=== PATIENT | male | born 1995 | race Caucasian/White ===

== ENCOUNTER 2021-07-14 10:15 | Day surgery (SDC) | payer OTHER ==
[~2021-07-14] VITALS: Ht 167.6 cm; Wt 68.0 kg
[~2021-07-14 10:15] MED LIST: DICY1CAP8 PO; FLOM0.4C39 PO; GABA800T4 PO; NS 1,000 ML IV ONE; PANT40TA29 PO; SING10TA32 PO
[2021-07-14] MEDS ORDERED: LIDOCAINE 2% 100MG/5ML SDV (FOR ANES.) As Ordered ONE (12:52)
[2021-07-14] MEDS ORDERED: propofoL 200 MG/20 ML VIAL As Ordered ONE ×3 (12:52→13:18)
[2021-07-14 13:45] VITALS: BP 121/78
== END 2021-07-14 13:53 | disposition home or self-care (01) ==
LOC: M OPP 10:15
PROVIDERS: ATTEND Surgery
DX: R63.4 Abnormal weight loss (principal); K64.0 First degree hemorrhoids; K22.89 Other specified disease of esophagus; K29.70 Gastritis, unspecified, without bleeding; K44.9 Diaphragmatic hernia without obstruction or gangrene; R10.13 Epigastric pain; Z79.899 Other long term (current) drug therapy

== ENCOUNTER 2021-10-02 10:03 | Emergency (ER) | payer OTHER ==
[~2021-10-02] VITALS: Ht 167.6 cm; Wt 61.4 kg
[~2021-10-02 10:03] MED LIST changes: -NS 1,000 ML IV ONE
[2021-10-02] MEDS ORDERED: MULT-90 PO (10:18)
[2021-10-02 11:35] LABS: BASO % 0.1 % (0.0-1.0); EOS % 0.1 % (0.0-3.0); HEMATOCRIT 42.1 % (42.0-52.0); HEMOGLOBIN 15.1 g/dl (13.5-17.5); LYMPH # 0.9 10^3/uL (1.5-5.0); LYMPH % 9.5 % (24.0-44.0); MEAN CORPUSCULAR HEMOGLOBIN 32.3 pg (27.0-33.0); MEAN CORPUSCULAR HGB CONC 35.9 g/dl (32.0-36.5); MONO # 0.6 10^3/uL (0.0-0.8); MONO % 5.9 % (2.0-8.0); NEUTROPHILS # 8.2 10^3/uL (1.5-8.5); NEUTROPHILS % 84.1 % (36.0-66.0); PLATELET COUNT, AUTOMATED 203 10^3/uL (150-450); RED BLOOD COUNT 4.68 10^6/uL (4.30-6.10); WHITE BLOOD COUNT 9.8 10^3/uL (4.0-10.0)
[2021-10-02] MEDS ORDERED: NS 1,000 ML IV ONE (11:35)
[2021-10-02] MEDS ORDERED: ONDANSETRON 4MG/2ML VIAL IV ONE (11:35)
[2021-10-02 12:11] LABS: ALBUMIN 4.8 GM/DL (3.2-5.2); ALT/SGPT 49 U/L (12-78); BILIRUBIN,DIRECT 0.4 MG/DL (0.0-0.2); BILIRUBIN,TOTAL 1.6 MG/DL (0.2-1.0); BLOOD UREA NITROGEN 20 MG/DL (7-18); CARBON DIOXIDE LEVEL 28 MEQ/L (21-32); CHLORIDE LEVEL 107 MEQ/L (98-107); CREATININE FOR GFR 0.89 MG/DL (0.70-1.30); GLOMERULAR FILTRATION RATE > 60.0 (>60); GLUCOSE, FASTING 67 MG/DL (70-100); LIPASE 159 U/L (73-393); POTASSIUM SERUM 4.9 MEQ/L (3.5-5.1); SODIUM LEVEL 142 MEQ/L (136-145); TOTAL PROTEIN 7.8 GM/DL (6.4-8.2)
[2021-10-02] MEDS ORDERED: ONDA4TAB6 PO (13:51)
[2021-10-02 14:03] VITALS: BP 119/60
== END 2021-10-02 14:04 | disposition home or self-care (01) ==
LOC: M ED 10:03
DX: R10.10 Upper abdominal pain, unspecified (principal); R11.2 Nausea with vomiting, unspecified; K21.9 Gastro-esophageal reflux disease without esophagitis; F17.220 Nicotine dependence, chewing tobacco, uncomplicated; Z79.899 Other long term (current) drug therapy
CPT/HCPCS: 76705; 80048; 80076; 83690; 85025; 96361; 96374; 99284; J2405

== ENCOUNTER → 2021-11-30 | Outpatient (CLI) | payer OTHER ==
[~2021-11-30] MED LIST changes: +E-Z-GAS II EFFERVESCENT PACKET (SODIUM BICARB./CITRIC ACID/SIMETHICONE) As Ordered ONE; +E-Z-HD 98% w/w 340GM SUSP BTL As Ordered ONE; +E-Z-PAQUE 96% w/w SUSP 176GM BTL As Ordered ONE; +MULT-90 PO; +ONDA4TAB6 PO
== END ==
LOC: M RAD 10:02
PROVIDERS: ATTEND Surgery
DX: K21.9 Gastro-esophageal reflux disease without esophagitis (principal)